=== PATIENT | female | born 1965 ===

== ENCOUNTER 2018-05-05 14:21 | Emergency (ER) | payer MEDICAID ==
[2018-05-05 14:22] VITALS: BMI 26.6
[2018-05-05 14:30] VITALS: BP 110/61; PULSE 57; RESP 16; TEMP 98.3; O2SAT 97
--- NOTE | 2018-05-05 15:25 | ED PDOC ---
HPI: Nose Bleed Time Seen by Provider: 05/05/18 14:30 Chief Complaint (Nursing): ENT Problem Chief Complaint (Provider): Nose Bleed History Per: Patient History/Exam Limitations: no limitations Onset/Duration Of Symptoms: Days (x1) Current Symptoms Are (Timing): Intermittent Episodes Location Of Bleeding: Left Nare Additional Complaint(s): 52 year old female presents to the ED for evaluation of an intermittent nose bleed since yesterday. Patient admits to taking 2 doses of 81mg Aspirin as recommended by her for heart health, despite it not being advised by her PMD. Otherwise, denies trauma, pain, weakness, chest pain, shortness of breath, and palpitations. PMD: Zonia Dave Past Medical History Reviewed: Historical Data, Nursing Documentation, Vital Signs Vital Signs: Last Vital Signs Temp 98.3 F 05/05/18 14:26 Pulse 57 L 05/05/18 14:26 Resp 16 05/05/18 14:26 BP 110/61 05/05/18 14:26 Pulse Ox 97 05/05/18 14:26 - Medical History PMH: Anxiety, Asthma, Bipolar Disorder, Depression, Kidney Stones, Chronic Kidney Disease Denies: CAD, HIV, HTN - Surgical History Surgical History: Cholecystectomy - Family History Family History: States: Diabetes, Hypertension Denies: CAD - Home Medications Home Medications: Ambulatory Orders Medication Instructions Recorded Aspirin [Ecotrin] 81 mg PO DAILY 01/26/16 Clonazepam [Klonopin] 2 mg PO HS 01/26/16 Famotidine [Pepcid] 20 mg PO DAILY PRN #6 tab 04/08/18 Ibuprofen [Motrin] 600 mg PO TID 7 Days tab 04/08/18 Oxymetazoline 0.05% [Afrin 0.05%] 2 - 3 spr NS Q12H #1 bottle 05/05/18 - Allergies Allergies/Adverse Reactions: Allergies Allergy/AdvReac Type Severity Reaction Status Date / Time Penicillins Allergy SWELLING Verified 05/28/17 09:03 chocolate flavor AdvReac Mild HEADACHE Verified 05/28/17 09:03 coffee (Coffea arabica) AdvReac Mild HEADACHE Verified 05/28/17 09:03 [coffee] Review of Systems ROS Statement: Except As Marked, All Systems Reviewed And Found Negative ENT: Positive for: Nose Discharge (bleeding) Cardiovascular: Negative for: Chest Pain, Palpitations Respiratory: Negative for: Shortness of Breath Neurological: Negative for: Weakness Physical Exam - Reviewed Nursing Documentation Reviewed: Yes Vital Signs Reviewed: Yes - Physical Exam Appears: Positive for: No Acute Distress Head Exam: Positive for: ATRAUMATIC, NORMAL INSPECTION, NORMOCEPHALIC Skin: Positive for: Normal Color, Warm, Dry Eye Exam: Positive for: Normal appearance ENT: Positive for: Pharynx Is (unremarkable, no bleeding noted), Other (left nostril: anterior bleeding site identified, no active bleeding bilat; no septal hematoma, nasal bridge tenderness or swelling) Cardiovascular/Chest: Positive for: Regular Rate, Rhythm Respiratory: Positive for: Normal Breath Sounds. Negative for: Respiratory Distress Neurologic/Psych: Positive for: Alert, Oriented (x3). Negative for: Aphasia, Facial Droop - ECG O2 Sat by Pulse Oximetry: 97 Medical Decision Making Medical Decision Making: Time: 1500 Initial Impression: epistaxis Initial Plan: --Patient does not require any emergent care at this time. She was advised the Aspirin was not necessary if she does not have history of heart problems or hypertension. Patient will be discharged with a nasal spray and advised to follow up with her PMD or the ED with any new or worsening symptoms. Scribe Attestation: Documented by Phyllis Figueroa, acting as a scribe for Calos Felton PA-C. Provider Scribe Attestation: All medical record entries made by the Scribe were at my direction and personally dictated by me. I have reviewed the chart and agree that the record accurately reflects my personal performance of the history, physical exam, medical decision making, and the department course for this patient. I have also personally directed, reviewed, and agree with the discharge instructions and disposition. Disposition - Clinical Impression Clinical Impression: Epistaxis - Patient ED Disposition Is Patient to be Admitted: No - Disposition Referrals: [facility] [Outside] Disposition: Routine/Home Disposition Time: 14:50 Condition: STABLE Additional Instructions: HUSEYIN CONRAD, thank you for letting us take care of you today. Your provider was Royce Pepe MD and you were treated for NOSE BLEEDING. The emergency medical care you received today was directed at your acute symptoms. If you were prescribed any medication, please fill it and take as directed. It may take several days for your symptoms to resolve. Return to the Emergency Department if your symptoms worsen, do not improve, or if you have any other problems. Please contact your doctor or call one of the physicians/clinics you have been referred to that are listed on the Patient Visit Information form that is included in your discharge packet. Bring any paperwork you were given at discharge with you along with any medications you are taking to your follow up visit. Our treatment cannot replace ongoing medical care by a primary care provider outside of the emergency department. Thank you for allowing the [facility] team to be part of your care today. If you had an X-Ray or CT scan: A Radiologist will review the ED reading if any change in treatment is needed we will contact you. If you had a blood, urine, or wound culture: It will take several days for the results, if any change in treatment is needed we will contact you. If you had an STI test: It will take 48 hours for the results. Please call after 1 week if you have not heard back. Prescriptions: Oxymetazoline 0.05% [Afrin 0.05%] 2 - 3 spr NS Q12H #1 bottle Instructions: Nosebleeds (DC) Forms: [facility] (Andorran) Print Language: URUGUAYAN
== END 2018-05-05 16:47 | disposition home or self-care (01) ==
LOC: MERGE 14:21 → H.ER 14:21
DX: R04.0 Epistaxis (principal)